=== PATIENT | female | born 1985 | race Two or more races ===

== ENCOUNTER 2017-12-14 20:40 | Emergency (ER) | payer BC ==
--- NOTE | 2017-12-14 21:47 | NUR ---
PT'S NAME CALLED THREE TIMES IN WAITING ROOM, NO RESPONSE. PT'S IN WAITING ROOM STATED THE PT HAS LEFT.
== END 2017-12-14 21:50 | disposition left against medical advice (07) ==
LOC: ER 20:45
DX: Z53.21 Procedure and treatment not carried out due to patient leaving prior to being seen by health care provider (principal)

== ENCOUNTER 2025-02-26 18:39 | Emergency (ER) | payer BC, OTHER ==
[~2025-02-26] VITALS: Ht 162.6 cm; Wt 62.6 kg
[2025-02-26 19:56] LABS: APPEARANCE,URINE CLEAR (CLEAR); BLOOD, URINE Trace-intact Ery/uL (NEGATIVE); LEUKOCYTE ESTERASE ,URINE Negative (NEGATIVE); NITRITE, URINE NEGATIVE (NEGATIVE); UGLUCOSE Negative (NEGATIVE)
[2025-02-26 19:57] LABS: ADD URINE CULTURE NO; SQUAMOUS EPITHELIAL CELL,UR Few /HPF (None Seen)
[2025-02-26 20:03] LABS: PREGNANCY TEST URINE QUAL NEGATIVE (NEGATIVE)
[2025-02-26 20:03] LABS: PLATELET COUNT (AUTO) 195 K/uL (150-450); RED BLOOD CELL COUNT(AUTO) 4.50 MIL/uL (4.0-5.2); RED CELL DISTRIBUTION WIDTH 13.1 % (11.5-15.0); WHITE BLOOD COUNT (AUTO) 6.1 K/uL (4.3-11.0)
[2025-02-26 20:20] LABS: CALCIUM, SERUM 9.3 mg/dL (8.5-10.1); CREATININE 0.6 mg/dL (0.6-1.3); SODIUM SERUM 137.0 mmol/L (136-145); UREA NITROGEN, BLOOD 15.0 mg/dL (7-18)
[2025-02-26] MEDS ORDERED: IOHEXOL-300 100 ML VIAL IV ONE (20:20)
[2025-02-26] MEDS ORDERED: CT SWABBABLE VALVE TRANS SET 1 EA INFUS.SET MC ONE (20:20)
[2025-02-26] MEDS ORDERED: IV NS 0.9% 250 ML IV ONE (20:20)
[2025-02-26 20:24] LABS: ASPARTATE AMINOTRANSFERASE 51.0 U/L (15-37); TOTAL PROTEIN, SERUM 7.9 g/dL (6.4-8.2)
[2025-02-26] MEDS ORDERED: IBUP-1490 PO (20:51)
[2025-02-26 21:32] VITALS: BP 98/71; TEMP 98.5; O2SAT 96
== END 2025-02-26 21:33 | disposition home or self-care (01) ==
LOC: ER 18:47
DX: R10.9 Unspecified abdominal pain (principal); K59.00 Constipation, unspecified; B34.9 Viral infection, unspecified; Z98.891 History of uterine scar from previous surgery
CPT/HCPCS: 99285; 74177; 71045; 85025; 80048; 83690; 80076; 81001; 36415; 84703 ×2; J7050; Q9967